=== PATIENT | male | born 1940 | race Caucasian/White ===

== ENCOUNTER 2017-02-01 17:31 | Emergency (ER) | payer MEDICAID, MEDICARE ==
[~2017-02-01 17:31] MED LIST: ASPI-535; ATOR80TA18; CLOP75TA19; METO-448
== END 2017-02-01 18:45 | disposition left against medical advice (07) ==
LOC: E/R 17:31
DX: Z53.21 Procedure and treatment not carried out due to patient leaving prior to being seen by health care provider (principal)